=== PATIENT | male | born 2000 | race Caucasian/White ===

== ENCOUNTER 2019-01-29 10:07 | Emergency (ER) | payer OTHER ==
[2019-01-29 11:04] LABS: Absolute Lymphocytes (CBC) 1.3 K/uL (0.7-4.9); Absolute Monocytes 0.7 K/uL (0.1-1.3); Absolute Neutrophil 11.7 K/uL (1.8-8.0); Basophils % 0.7 % (0-1.3); Hematocrit 49.6 % (39.6-49.0); Lymphocytes % 9.6 % (15.3-44.8); MPV 7.8 fL (7.6-11.3); Monocytes % 5.3 % (3.3-12.3); RBC Red Blood Cell Count 5.21 M/uL (4.33-5.43)
[2019-01-29 11:18] LABS: Potassium 3.2 mmol/L (3.5-5.1)
[2019-01-29] MEDS ORDERED: NA CHLORIDE 0.9% 1,000 ML ONE (11:43)
[2019-01-29] MEDS ORDERED: ONDANSETRON 4 MG/2 ML VIAL ONE (12:24)
--- NOTE | 2019-01-29 12:56 | ER ---
Nurse's Notes [facility] Name: Alirio Middleton Age: 18 yrs Sex: Male : 2000 Arrival Date: 01/29/2019 Time: 10:12 Bed 18 Private MD: Diagnosis: Vomiting, unspecified Presentation: 01/29 10:22 Presenting complaint: Patient states: vomiting that began Tuesday. Pt states "I feel aa5 lightheaded like I am dehydrated". Transition of care: patient was not received from another setting of care. Onset of symptoms was January 2019. Risk Assessment: Do you want to hurt yourself or someone else? Patient reports no desire to harm self or others. Initial Sepsis Screen: Does the patient meet any 2 criteria? No. Patient's initial sepsis screen is negative. Does the patient have a suspected source of infection? No. Patient's initial sepsis screen is negative. Care prior to arrival: None. 10:22 Method Of Arrival: Ambulatory aa5 10:22 Acuity: TORREY 3 aa5 Historical: - Allergies: 10:23 No Known Allergies; aa5 - PMHx: 10:23 Possible chron's; aa5 - PSHx: 10:23 None; aa5 - Immunization history:: Flu vaccine is not up to date. - Social history:: Smoking status: Patient uses tobacco products, denies chronic smoking, but will smoke occasionally. - Ebola Screening: : No symptoms or risks identified at this time. Assessment: 11:00 General: Appears in no apparent distress. uncomfortable, slender, well groomed, ph Behavior is calm, cooperative, appropriate for age, Denies fever. Pain: Denies pain. Neuro: Level of Consciousness is awake, alert, obeys commands, Oriented to person, place, time, situation, Reports dizziness. Cardiovascular: Capillary refill < 3 seconds in bilateral fingers Patient's skin is warm and dry. Respiratory: Airway is patent Respiratory effort is even, unlabored, Respiratory pattern is regular, symmetrical. GI: Abdomen is flat, non-distended, Bowel sounds present X 4 quads. Abd is soft and non tender X 4 quads. Reports nausea, vomiting, Patient currently denies abdominal pain, diarrhea. Derm: Skin is intact, Skin is pink, warm \\T\\ dry. Musculoskeletal: Circulation, motion, and sensation intact. Range of motion: intact in all extremities. 12:19 Reassessment: Patient appears in no apparent distress at this time. Patient and/or ph family updated on plan of care and expected duration. Pain level reassessed. Patient is alert, oriented x 3, equal unlabored respirations, skin warm/dry/pink. Pt c/o nausea, antiemetic administered per ERP order and pt given water for PO challenge. Vital Signs: 10:23 BP 121 / 80; Pulse 61; Resp 16 S; Temp 98.1(O); Pulse Ox 100% on R/A; Weight 58.97 kg aa5 (R); Height 5 ft. 9 in. (175.26 cm) (R); Pain 0/10; 10:55 BP 130 / 77 Supine; Pulse 50; Resp 16; Pulse Ox 100% on R/A; dh3 10:57 BP 130 / 84 Sitting; Pulse 55; Resp 16; Pulse Ox 99% on R/A; dh3 10:59 BP 130 / 90 Standing; Pulse 63; Resp 16; Pulse Ox 99% on R/A; dh3 12:27 BP 128 / 80; Pulse 56; Resp 18; Pulse Ox 99% on R/A; ph 10:23 Body Mass Index 19.20 (58.97 kg, 175.26 cm) aa5 ED Course: 10:12 Patient arrived in ED. aa5 10:14 [facility]C [facility]. kb 10:14 Pablo Matias MD is Attending Physician. kb 10:22 Arm band placed on. aa5 10:23 Triage completed. aa5 10:30 Ria Blair RN is Primary Nurse. ph 10:50 Inserted saline lock: 20 gauge in right antecubital area, using aseptic technique. ph Blood collected. Administered Medications: 11:35 Drug: NS 0.9% 1000 ml Route: IV; Rate: 1000 ml; Site: right antecubital; ph 13:41 Follow up: Response: No adverse reaction; IV Status: Completed infusion ph 12:18 Drug: Zofran 4 mg Route: IVP; Site: right antecubital; ph 13:41 Follow up: Response: No adverse reaction; Nausea is decreased ph Outcome: 12:56 Discharge ordered by . kb 13:42 Patient left the ED. ph Signatures: Isis Silva FNP-C FNP-Ckb Calderon, Renetta, RN RN aa5 Ria Blair RN RN ph Crow, Tessie 3
--- NOTE | 2019-01-29 12:57 | EDPHYS ---
Physician Documentation [facility] Name: Alirio Middleton Age: 18 yrs Sex: Male : 2000 Arrival Date: 01/29/2019 Time: 10:12 Bed 18 Private MD: ED Physician Pablo Matias HPI: 01/29 10:59 This 18 yrs old Male presents to ER via Ambulatory with complaints of kb Vomiting. 10:59 The patient presents to the emergency department with nausea, vomiting. Onset: The kb symptoms/episode began/occurred 4 day(s) ago. Possible causes: unknown. The symptoms are aggravated by nothing. The symptoms are alleviated by nothing. Associated signs and symptoms: Pertinent positives: nausea, vomiting, Pertinent negatives: abdominal pain, anorexia, belching, constipation, diarrhea, dysuria, fever, flatulence, GI bleeding, hematuria. Severity of symptoms: At their worst the symptoms were moderate in the emergency department the symptoms are unchanged. The patient has not experienced similar symptoms in the past. The patient has not recently seen a physician. Historical: - Allergies: 10:23 No Known Allergies; aa5 - PMHx: 10:23 Possible chron's; aa5 - PSHx: 10:23 None; aa5 - Immunization history:: Flu vaccine is not up to date. - Social history:: Smoking status: Patient uses tobacco products, denies chronic smoking, but will smoke occasionally. - Ebola Screening: : No symptoms or risks identified at this time. ROS: 10:58 ENT: Negative for injury, pain, and discharge, Neck: Negative for injury, pain, and kb swelling, Cardiovascular: Negative for chest pain, palpitations, and edema, Respiratory: Negative for shortness of breath, cough, wheezing, and pleuritic chest pain, Back: Negative for injury and pain, : Negative for injury, bleeding, discharge, and swelling, MS/Extremity: Negative for injury and deformity, Skin: Negative for injury, rash, and discoloration, Neuro: Negative for headache, weakness, numbness, tingling, and seizure. 10:58 Constitutional: Positive for fatigue, malaise, poor PO intake, Negative for body aches, chills, fever, weight loss. 10:58 Abdomen/GI: Positive for nausea and vomiting, Negative for abdominal pain, diarrhea, constipation, abdominal cramps, abdominal distension, anorexia. Exam: 10:59 Constitutional: This is a well developed, well nourished patient who is awake, alert, kb and in no acute distress. Head/Face: Normocephalic, atraumatic. ENT: Nares patent. No nasal discharge, no septal abnormalities noted. Tympanic membranes are normal and external auditory canals are clear. Oropharynx with no redness, swelling, or masses, exudates, or evidence of obstruction, uvula midline. Mucous membranes moist. Neck: Trachea midline, no thyromegaly or masses palpated, and no cervical lymphadenopathy. Supple, full range of motion without nuchal rigidity, or vertebral point tenderness. No Meningismus. Chest/axilla: Normal chest wall appearance and motion. Nontender with no deformity. No lesions are appreciated. Cardiovascular: Regular rate and rhythm with a normal S1 and S2. No gallops, murmurs, or rubs. Normal PMI, no JVD. No pulse deficits. Respiratory: Lungs have equal breath sounds bilaterally, clear to auscultation and percussion. No rales, rhonchi or wheezes noted. No increased work of breathing, no retractions or nasal flaring. Abdomen/GI: Soft, non-tender, with normal bowel sounds. No distension or tympany. No guarding or rebound. No evidence of tenderness throughout. Back: No spinal tenderness. No costovertebral tenderness. Full range of motion. Skin: Warm, dry with normal turgor. Normal color with no rashes, no lesions, and no evidence of cellulitis. MS/ Extremity: Pulses equal, no cyanosis. Neurovascular intact. Full, normal range of motion. Neuro: Awake and alert, GCS 15, oriented to person, place, time, and situation. Cranial nerves II-XII grossly intact. Motor strength 5/5 in all extremities. Sensory grossly intact. Cerebellar exam normal. Normal gait. Vital Signs: 10:23 BP 121 / 80; Pulse 61; Resp 16 S; Temp 98.1(O); Pulse Ox 100% on R/A; Weight 58.97 kg aa5 (R); Height 5 ft. 9 in. (175.26 cm) (R); Pain 0/10; 10:55 BP 130 / 77 Supine; Pulse 50; Resp 16; Pulse Ox 100% on R/A; dh3 10:57 BP 130 / 84 Sitting; Pulse 55; Resp 16; Pulse Ox 99% on R/A; dh3 10:59 BP 130 / 90 Standing; Pulse 63; Resp 16; Pulse Ox 99% on R/A; dh3 12:27 BP 128 / 80; Pulse 56; Resp 18; Pulse Ox 99% on R/A; ph 10:23 Body Mass Index 19.20 (58.97 kg, 175.26 cm) aa5 MDM: 10:24 Patient medically screened. kb 10:58 Data reviewed: vital signs, nurses notes. Data interpreted: Pulse oximetry: on room air kb is 100 %. Interpretation: normal. 11:39 Counseling: I had a detailed discussion with the patient and/or guardian regarding: the kb historical points, exam findings, and any diagnostic results supporting the discharge/admit diagnosis, lab results, the need for outpatient follow up, a family practitioner, to return to the emergency department if symptoms worsen or persist or if there are any questions or concerns that arise at home. 12:55 ED course: Pt tolerating PO intake. Reports he is feeling better. kb 01/29 10:36 Order name: CBC with Diff; Complete Time: 11:18 kb 01/29 10:36 Order name: Basic Metabolic Panel; Complete Time: 11:18 kb 01/29 10:35 Order name: Orthostatics; Complete Time: 11:02 kb 01/29 10:36 Order name: Flu; Complete Time: 11:39 kb 01/29 10:36 Order name: IV Start; Complete Time: 11:03 kb 01/29 11:40 Order name: PO challenge; Complete Time: 13:41 kb Administered Medications: 11:35 Drug: NS 0.9% 1000 ml Route: IV; Rate: 1000 ml; Site: right antecubital; ph 13:41 Follow up: Response: No adverse reaction; IV Status: Completed infusion ph 12:18 Drug: Zofran 4 mg Route: IVP; Site: right antecubital; ph 13:41 Follow up: Response: No adverse reaction; Nausea is decreased ph Disposition: 15:02 Co-signature as Attending Physician, Pablo Matias MD. ma2 Disposition: 01/29/19 12:56 Discharged to Home. Impression: Vomiting, unspecified. - Condition is Stable. - Discharge Instructions: Nausea and Vomiting, Adult, [id number]. - Prescriptions for Zofran 4 mg Oral Tablet - take 1 tablet by ORAL route every 6 hours As needed; 20 tablet. - Medication Reconciliation Form, Thank You Letter, Antibiotic Education, Prescription Opioid Use form. - Follow up: Emergency Department; When: As needed; Reason: Worsening of condition. Follow up: Private Physician; When: 2 - 3 days; Reason: Recheck today's complaints, Continuance of care, Re-evaluation by your physician. Signatures: Dispatcher [employer] EDIsis Diego, Renetta Bruno, RN RN aa5 Ria Blair RN RN ph Pablo Matias MD MD ma2 Corrections: (The following items were deleted from the chart) 13:42 12:56 01/29/2019 12:56 Discharged to Home. Impression: Vomiting, unspecified. Condition ph is Stable. Forms are Medication Reconciliation Form, Thank You Letter, Antibiotic Education, Prescription Opioid Use. Follow up: Emergency Department; When: As needed; Reason: Worsening of condition. Follow up: Private Physician; When: 2 - 3 days; Reason: Recheck today's complaints, Continuance of care, Re-evaluation by your physician. kb
== END 2019-01-29 13:42 | disposition home or self-care (01) ==
LOC: ER 10:07
DX: R11.2 Nausea with vomiting, unspecified (principal); Z72.0 Tobacco use
CPT/HCPCS: 36415; 80048; 85025; 87804; 96361; 96374; 99284; J2405; J7030

== ENCOUNTER 2020-05-24 02:28 | Emergency (ER) | payer OTHER ==
[2020-05-24] MEDS ORDERED: LORazepam 2 MG/ML VIAL ONE (02:58)
[2020-05-24 03:02] LABS: Absolute Lymphocytes (CBC) 1.2 K/uL (0.7-4.9); Basophils % 0.8 % (0-1.3); Hematocrit 48.4 % (39.6-49.0); MPV 8.1 fL (7.6-11.3); RBC Red Blood Cell Count 4.95 M/uL (4.33-5.43)
[2020-05-24 03:05] LABS: Protime INR 0.98
[2020-05-24 03:16] LABS: Barbiturates NEGATIVE (NEGATIVE); Benzodiazepines NEGATIVE (NEGATIVE); Cocaine NEGATIVE (NEGATIVE); METHAMPHETAM NEGATIVE (NEGATIVE); Methadone NEGATIVE (NEGATIVE); Opiates NEGATIVE (NEGATIVE); Phencyclidine NEGATIVE (NEGATIVE); THC Cannibis POSITIVE (NEGATIVE)
[2020-05-24 03:17] LABS: ALT/SGPT 73 U/L (12-78); AST/SGOT 91 U/L (15-37); Albumin 4.8 g/dL (3.4-5.0); Alkaline Phosphatase 70 U/L (45-117); BUN Blood Urea Nitrogen 21 mg/dL (7-18); Bicarbonate 23 mmol/L (21-32); Bilirubin Direct 0.2 mg/dL (0-0.2); Bilirubin Total 0.7 mg/dL (0.2-1.0); Glucose Level 141 mg/dL (74-106); Potassium 3.1 mmol/L (3.5-5.1); Protein, Total 8.3 g/dL (6.4-8.2); Sodium Level 140 mmol/L (136-145)
[2020-05-24] MEDS ORDERED: TETANUS & DIPHTHERIA TOX,ADULT 0.5 ML VIAL ONE (04:20)
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
--- NOTE | 2020-05-24 05:15 | EDPHYS ---
Physician Documentation [facility] Name: Alirio Middleton Age: 20 yrs Sex: Male : 2000 Arrival Date: 05/24/2020 Time: 02:27 Bed 3 Private MD: ED Physician Darrian Crisostomo HPI: 05/24 03:47 This 20 yrs old Male presents to ER via EMS with complaints of Drug Abuse, mh7 Trauma Complaint. 03:47 Trauma demographics: County: The injury occurred in [place] Location of Injury: The mh7 injury occurred on a street or driveway, Date: May 24, 2020. Mechanism of injury: Fall: the patient fell from a building, jumped from a balcony after using drugs. Associated injuries: The patient sustained right leg, abrasion, contusion. Onset: The symptoms/episode began/occurred today. Unable to obtain HPI due to altered mental status, patient is being uncooperative, Intoxicated. Historical: - Allergies: 02:38 No Known Allergies; rr5 - Home Meds: 02:38 None [Active]; rr5 - PMHx: 02:38 None; rr5 - PSHx: 02:38 None; rr5 - Immunization history:: Adult Immunizations up to date, Last tetanus immunization: unknown. - Social history:: Smoking status: unknown Patient uses street drugs, marijuana, Patient/guardian denies using alcohol. ROS: 03:47 Unable to obtain ROS due to altered mental status, patient being uncooperative, mh7 Intoxicated. Exam: 03:47 Head/Face: Normocephalic, atraumatic. Eyes: Pupils equal round and reactive to light, mh7 extra-ocular motions intact. Lids and lashes normal. Conjunctiva and sclera are non-icteric and not injected. Cornea within normal limits. Periorbital areas with no swelling, redness, or edema. ENT: Nares patent. No nasal discharge, no septal abnormalities noted. Tympanic membranes are normal and external auditory canals are clear. Oropharynx with no redness, swelling, or masses, exudates, or evidence of obstruction, uvula midline. Mucous membranes moist. Neck: Trachea midline, no thyromegaly or masses palpated, and no cervical lymphadenopathy. Supple, full range of motion without nuchal rigidity, or vertebral point tenderness. No Meningismus. Chest/axilla: Normal chest wall appearance and motion. Nontender with no deformity. No lesions are appreciated. Cardiovascular: Regular rate and rhythm with a normal S1 and S2. No gallops, murmurs, or rubs. Normal PMI, no JVD. No pulse deficits. Respiratory: Lungs have equal breath sounds bilaterally, clear to auscultation and percussion. No rales, rhonchi or wheezes noted. No increased work of breathing, no retractions or nasal flaring. Abdomen/GI: Soft, non-tender, with normal bowel sounds. No distension or tympany. No guarding or rebound. No evidence of tenderness throughout. Back: No spinal tenderness. No costovertebral tenderness. Full range of motion. Male : Normal genitalia with no discharge or lesions. Skin: Warm, dry with normal turgor. Normal color with no rashes, no lesions, and no evidence of cellulitis. 03:47 Constitutional: The patient appears in no acute distress, awake, Appears intoxicated 03:47 Musculoskeletal/extremity: Extremities: noted in the right leg: abrasion, contusion. 03:47 Skin: injury, abrasion(s), small abrasion noted, of the right leg, contusion(s), that are superficial, of the right leg. 03:47 Neuro: Orientation: unable to test, the patient is clinically intoxicated, Mentation: unable to test, the patient is clinically intoxicated, Memory: unable to test, the patient is clinically intoxicated, Cranial nerves: unable to test, the patient is clinically intoxicated, Cerebellar function: unable to test, the patient is clinically intoxicated, Motor: unable to test, the patient is clinically intoxicated, Sensation: unable to test, the patient is clinically intoxicated, seizure activity, is not displayed by the patient, Abnormal movements: there are no abnormal movements. Vital Signs: 02:25 BP 157 / 77; Pulse 107; Resp 20; Temp 98.2; Pulse Ox 100% ; Weight 75 kg; rr5 03:22 BP 141 / 75; Pulse 77; Resp 16; Pulse Ox 98% on R/A; rr5 04:16 BP 128 / 75; Pulse 70; Resp 15; Pulse Ox 100% ; rr5 05:08 BP 129 / 60; Pulse 68; Resp 17; Pulse Ox 99% ; rr5 Lanse Coma Score: 02:25 Eye Response: spontaneous(4). Verbal Response: confused(4). Motor Response: obeys rr5 commands(6). Total: 14. Trauma Score (Adult): 02:25 Eye Response: spontaneous(1); Verbal Response: confused(1); Motor Response: obeys rr5 commands(2); Systolic BP: > 89 mm Hg(4); Respiratory Rate: 10 to 29 per min(4); Lanse Score: 14; Trauma Score: 12 03:22 Eye Response: spontaneous(1); Verbal Response: oriented(1); Motor Response: obeys rr5 commands(2); Systolic BP: > 89 mm Hg(4); Respiratory Rate: 10 to 29 per min(4); Wolf Score: 15; Trauma Score: 12 04:16 Eye Response: spontaneous(1); Verbal Response: oriented(1); Motor Response: obeys rr5 commands(2); Systolic BP: > 89 mm Hg(4); Respiratory Rate: 10 to 29 per min(4); Lanse Score: 15; Trauma Score: 12 05:08 Eye Response: spontaneous(1); Verbal Response: oriented(1); Motor Response: obeys rr5 commands(2); Systolic BP: > 89 mm Hg(4); Respiratory Rate: 10 to 29 per min(4); Wolf Score: 15; Trauma Score: 12 Laceration: 05:16 Wound Repair of 1cm ( 0.4in ) subcutaneous laceration to left occipital scalp. Distal mh7 neuro/vascular/tendon intact. Skin closed with 2 1-0 Hawks using staple gun. MDM: 02:34 Patient medically screened. [facility] 05:12 Differential diagnosis: intra-abdominal injury, closed head injury, extremity fracture, mh7 C spine fracture, T spine fracture, L spine fracture. Data reviewed: vital signs, nurses notes, EMS record, lab test result(s), CBC, electrolytes, EKG, radiologic studies, CT scan, plain films. Data interpreted: Pulse oximetry: on room air is 99 %. Interpretation: normal. Counseling: I had a detailed discussion with the patient and/or guardian regarding: the historical points, exam findings, and any diagnostic results supporting the discharge/admit diagnosis, lab results, radiology results, the need for outpatient follow up, to return to the emergency department if symptoms worsen or persist or if there are any questions or concerns that arise at home. 07:01 ED course: NAD, VSS, no focal neurological deficits. Awake, alert, and oriented x 3.. 05/24 02:38 Order name: Acetaminophen; Complete Time: 04:17 [facility] 05/24 02:38 Order name: Basic Metabolic Panel; Complete Time: 04:17 [facility] 05/24 02:38 Order name: CBC with Diff; Complete Time: 04:17 [facility] 05/24 02:38 Order name: ETOH Level; Complete Time: 04:17 [facility] 05/24 02:38 Order name: Hepatic Function; Complete Time: 04:17 [facility] 05/24 02:38 Order name: PT-INR; Complete Time: 04: [facility] 05/24 02:38 Order name: Ptt, Activated; Complete Time: 04:17 [facility] 05/24 02:38 Order name: Salicylate; Complete Time: 04:17 [facility] 05/24 02:38 Order name: Urine Drug Screen; Complete Time: 04: [facility] 05/24 02:45 Order name: Glucose, Ancillary Testing; Complete Time: 04:17 [facility] 05/24 02:38 Order name: EKG; Complete Time: 02:39 [facility] 05/24 02:38 Order name: EKG - Nurse/Tech; Complete Time: 02:46 [facility] 05/24 02:38 Order name: IV Saline Lock; Complete Time: 02:46 [facility] 05/24 02:38 Order name: Labs collected and sent; Complete Time: 02:46 [facility] 05/24 02:38 Order name: Urine Dipstick-Ancillary (obtain specimen); Complete Time: 02:46 [facility] 05/24 02:49 Order name: Head C Spine Cap W Con [facility] 05/24 04:09 Order name: XRAY Tib Fib RIGHT rr5 Administered Medications: 04:16 Drug: Tetanus-Diphtheria Toxoid Adult 0.5 ml {Family Practice Physician Assistant: [employer]. Exp: rr5 01/11/2022. Lot #: [id number]. } Route: IM; Site: right deltoid; Disposition: 05/24/20 05:14 Discharged to Home. Impression: Right Leg Contusion, Intoxication, Laceration without foreign body of scalp. - Condition is Stable. - Discharge Instructions: Contusion, Tfgw-[id number]-Tomj, Laceration Care, Adult, Mpkc-nc-Ocas, Facial or Scalp Contusion, Uqsb-rk-Udhb. - Medication Reconciliation Form, Thank You Letter, Antibiotic Education, Prescription Opioid Use form. - Follow up: Private Physician; When: 2 - 3 days; Reason: Worsening of condition, Recheck today's complaints, Re-evaluation by your physician. - Problem is new. - Symptoms have improved. Signatures: Dispatcher [employer] [facility] Arnie Berger RN RN rr5 Darrian Crisostomo MD MD mh7 Corrections: (The following items were deleted from the chart) 02:49 02:39 Chest Abdomen Pelvis W Con+CT.RAD.BRZ ordered. EDNY EDNY 03:18 02:39 Head C Spine MPR Wo Con+CT.RAD.BRZ ordered. EDNY EDNY 03:18 02:39 Thoracic Spine WO Cont+CT.RAD.BRZ ordered. EDNY EDNY 03:19 02:39 Spine Lumbar Wo Con+CT.RAD.BRZ ordered. [facility] 03:51 02:38 PMHx: chron's; rr5 rr5 03:51 02:38 PMHx: Possible Chron's; rr5 rr5 05:16 05:14 05/24/2020 05:14 Discharged to Home. Impression: Right Leg Contusion; mh7 Intoxication. Condition is Stable. Forms are Medication Reconciliation Form, Thank You Letter, Antibiotic Education, Prescription Opioid Use. Follow up: Private Physician; When: 2 - 3 days; Reason: Worsening of condition, Recheck today's complaints, Re-evaluation by your physician. Problem is new. Symptoms have improved. 7 05:21 05:16 05/24/2020 05:14 Discharged to Home. Impression: Right Leg Contusion; rr5 Intoxication; Laceration without foreign body of scalp. Condition is Stable. Discharge Instructions: Contusion, Uonu-ou-Jiyf, Laceration Care, Adult, Wwlq-zf-Pafi, Facial or Scalp Contusion, Ynss-es-Ogwj. Forms are Medication Reconciliation Form, Thank You Letter, Antibiotic Education, Prescription Opioid Use. Follow up: Private Physician; When: 2 - 3 days; Reason: Worsening of condition, Recheck today's complaints, Re-evaluation by your physician. Problem is new. Symptoms have improved. 7
[2020-05-24 05:42] VITALS: BP 129/60; O2SAT 99
--- NOTE | 2020-05-24 11:10 | RAD REPORT ---
EXAM DESCRIPTION: RAD - Tib Fib Right - 05/24/2020 4:33 am CLINICAL HISTORY: fall Fall, trauma, pain COMPARISON: No comparisons FINDINGS: No acute fracture or dislocation is seen.
--- NOTE | 2020-05-24 11:24 | EKG ---
Test Date: 2020-05-24 Test Time: 02:30:36 Child Development Director: KEE MEASUREMENT RESULTS: Intervals: Rate: 101 IL: 150 QRSD: 94 QT: 336 QTc: 435 Abercrombie: P: 63 IL: 150 QRS: 70 T: 62 INTERPRETIVE STATEMENTS: Sinus tachycardia Moderate voltage criteria for LVH, may be normal variant Borderline ECG No previous ECG available for comparison Electronically Signed On 05-24-20 11:23:10 CDT by Deshaun Peguero
--- NOTE | 2020-05-24 20:29 | RAD REPORT ---
EXAM DESCRIPTION: Head C Spine Cap W Con CLINICAL HISTORY: TRAUMA COMPARISON: None. TECHNIQUE: CT HEAD AND CERVICAL SPINE WITHOUT CONTRAST AND CT CHEST ABDOMEN PELVIS WITH CONTRAST on 05/24/2020 2:38 AM CDT This exam was performed according to our departmental dose-optimization program, which includes autom ated exposure control, adjustment of the mA and/or kV according to patient size and/or use of iterati ve reconstruction technique. FINDINGS: Brain: There is no acute hemorrhage, mass effect or midline shift. Pope-white differentiat ion is preserved. There is no hydrocephalus. There is no significant volume loss for age. The calvarium is intact. Orbits and globes are unremarkable. The paranasal sinuses are clear. Mastoid air cells are clear. Cervical Spine: There is no acute fracture. Alignment is anatomic. Disc spaces are maintained. Vertebral body heights are preserved. Soft tissues are unremarkable. Chest: The heart is normal in size. There is no pericardial effusion. Intrathoracic lymph nodes are n ot enlarged. There is no pleural effusion, pleural thickening or pneumothorax. Central airways are patent. Lungs a re clear with no consolidation, mass or interstitial lung disease. Abdomen: The liver is normal in appearance. There is no biliary dilatation. The gallbladder is normal in appearance. The pancreas and spleen are normal in appearance. The adrenal glands and kidneys are unremarkable. Abdominal aorta is normal in course and caliber without aneurysm. There is no free air. There is no r etroperitoneal adenopathy. Pelvis: There is no bowel obstruction. Urinary bladder is unremarkable. There is no free fluid. Appen robin is not clearly seen. Skeleton: There are no acute osseous findings. No suspicious bony lesions. IMPRESSION: No definite posttraumatic findings. Electronically signed by: Sumit Aguayo MD 05/24/2020 3:40 AM CDT Due to temporary technical issues with the PACS/Fluency reporting system, reports are being signed by the in house radiologist without review as a courtesy to ensure prompt reporting. The interpreting r adiologist is fully responsible for the content of the report.
== END 2020-05-24 05:21 | disposition home or self-care (01) ==
LOC: ER 02:28
PROC: 0JQ00ZZ Repair Scalp Subcutaneous Tissue and Fascia, Open Approach (ICD-10-PCS; principal; 2020-05-24)
DX: S01.01XA Laceration without foreign body of scalp, initial encounter (principal); S80.11XA Contusion of right lower leg, initial encounter; T50.905A Adverse effect of unspecified drugs, medicaments and biological substances, initial encounter; Z23 Encounter for immunization
CPT/HCPCS: 93005; 85025; 80048; 36415; 80320; 80329 ×2; 85610; 82947; 80076; 80307 ×8; 85730; 70450; 72125; 71260; 74177; 73590; 90471; 90714; 99285; 12001; Q9967

== ENCOUNTER 2023-02-18 19:57 | Emergency (ER) | payer OTHER ==
--- NOTE | 2023-02-18 21:38 | RAD REPORT ---
EXAM DESCRIPTION: US - Scrotum Testicles - 02/18/2023 9:04 pm CLINICAL HISTORY: Testicular pain COMPARISON: None FINDINGS: Right testicle measures 4.5 x 2.5 x 3.8 centimeters. Echotexture is homogeneous. Normal bl ood flow Left testicle measures 4.4 x 2.1 x 3.3 centimeters. Echotexture is homogeneous. Normal blood flow The epididymides are normal in size and echotexture. Normal blood flow is seen. 6 millimeter right complex spermatocele IMPRESSION: No significant abnormality is displayed
--- NOTE | 2023-02-18 22:33 | RAD REPORT ---
EXAM DESCRIPTION: CT - Stone Protocol - 02/18/2023 10:15 pm CLINICAL HISTORY: Abdominal pain./flank pain COMPARISON: None. TECHNIQUE: Computed axial tomography of the abdomen pelvis was obtained without oral or IV contrast. Lack of IV and oral contrast limits evaluation of solid organs, appendix, bowel, and vessels. Hammond l reformatted images were obtained and reviewed. All CT scans are performed using dose optimization technique as appropriate and may include automated exposure control or mA/KV adjustment according to patient size. FINDINGS: A renal calculus is not seen. An ureteral calculus is not noted. A bladder calculus is not present. No hydronephrosis Mild hepatomegaly Spleen, pancreas and adrenals appear grossly normal There is no evidence of diverticulitis. Spina bifida occulta S1 IMPRESSION: Negative for a genitourinary calculus Mild hepatomegaly
[2023-02-18 23:32] LABS: Specific Gravity 1.021 (1.005-1.030); Urine Bacteria <20 /HPF (<20); Urine Bilirubin NEGATIVE (Negative); Urine Blood 3+ (OVER) (Negative); Urine Clarity Turbid (Clear); Urine Color Light-Orange (Yellow); Urine Glucose NEGATIVE (Negative); Urine Mucus Slight /HPF (None Seen); Urine Protein 1+ (Negative); Urine RBC >50 /HPF (None Seen); Urine Urobilinogen Normal (Normal); Urine WBC Clump Occasional /HPF (None Seen)
--- NOTE | 2023-02-18 23:41 | EDPHYS ---
Physician Documentation [facility] Name: Alirio Middleton Age: 22 yrs Sex: Male : 2000 Arrival Date: 02/18/2023 Time: 20:03 Bed 25 Private MD: ED Physician Valentin Winters HPI: 02/18 21:32 This 22 yrs old Male presents to ER via Ambulatory with complaints of Testicular Pain, kb Abdominal Pain, Pain With Urination. 21:32 The patient presents with scrotal pain, of the left side, urinary symptoms, hematuria. kb Onset: The symptoms/episode began/occurred this morning. Modifying factors: The symptoms are alleviated by nothing, the symptoms are aggravated by urinating. Associated signs and symptoms: Pertinent positives: abdominal pain, hematuria, Pertinent negatives: constipation, diarrhea, dysuria, fever, nausea, vomiting. Severity of symptoms: At their worst the symptoms were moderate, in the emergency department the symptoms are unchanged. The patient has not experienced similar symptoms in the past. The patient has not recently seen a physician. Pt reports blood in urine this morning, slight flank pain that has resolved, left lower abd pain and left testicular pain. . Historical: - Allergies: 20:14 No Known Allergies; kd3 - Home Meds: 20:14 None [Active]; kd3 - PMHx: 20:14 None; kd3 - Immunization history:: Adult Immunizations up to date. - Social history:: Smoking status: Patient reports the use of cigarette tobacco products, cigars. ROS: 21:31 Constitutional: Negative for fever, chills, and weight loss. kb 21:31 Abdomen/GI: Positive for abdominal pain. 21:31 : Positive for hematuria, testicular pain 21:31 All other systems are negative. Exam: 21:31 Constitutional: This is a well developed, well nourished patient who is awake, alert, kb and in no acute distress. Head/Face: Normocephalic, atraumatic. ENT: Moist Mucous membranes Cardiovascular: Regular rate and rhythm with a normal S1 and S2. No gallops, murmurs, or rubs. No pulse deficits. Respiratory: Respirations even and unlabored. No increased work of breathing. Talking in full sentences Skin: Warm, dry with normal turgor. Normal color. MS/ Extremity: Pulses equal, no cyanosis. Neurovascular intact. Full, normal range of motion. Neuro: Awake and alert, GCS 15, oriented to person, place, time, and situation. Moves all extremities. Normal gait. Psych: Awake, alert, with orientation to person, place and time. Behavior, mood, and affect are within normal limits. 21:31 Abdomen/GI: Inspection: abdomen appears normal, Bowel sounds: normal, in all quadrants, Palpation: moderate abdominal tenderness, in the left lower quadrant. Vital Signs: 20:11 BP 127 / 70; Pulse 87; Resp 16; Temp 99.1(TE); Pulse Ox 99% on R/A; kd3 23:42 BP 119 / 49; Pulse 62; Resp 17; Pulse Ox 99% on R/A; aa9 MDM: 20:04 Patient medically screened. kb 21:31 Data reviewed: vital signs, nurses notes. kb 21:31 Differential diagnosis: nonspecific abdominal pain, Epididymitis, kidney stone, UTI. kb 23:34 Counseling: I had a detailed discussion with the patient and/or guardian regarding: the kb historical points, exam findings, and any diagnostic results supporting the discharge/admit diagnosis, lab results, radiology results, the need for outpatient follow up, a urologist, to return to the emergency department if symptoms worsen or persist or if there are any questions or concerns that arise at home. ED course: Educated to continue previously prescribed doxycycline and follow up with PCP/urology. 02/18 20:17 Order name: Urinalysis w/ reflexes; Complete Time: 23:34 kb 02/18 23:36 Order name: Urine Culture EDIL 02/18 20:17 Order name: US Scrotum Testicles; Complete Time: 22:42 kb 02/18 22:01 Order name: CT Stone Protocol; Complete Time: 22:57 kb Administered Medications: No medications were administered Disposition: 02/19 07:16 Co-signature as Attending Physician, Valentin Winters MD I reviewed the patient's care sp4 provided by the Advanced Practice Provider and agree with the diagnosis and treatment plan. Disposition Summary: 02/18/23 23:40 Discharge Ordered Location: Home kb Condition: Stable kb Diagnosis - Left testicular pain kb - UTI/ Urinary tract infection, site not specified kb Followup: kb - With: Emergency Department - When: As needed - Reason: Worsening of condition Followup: kb - With: Private Physician - When: 2 - 3 days - Reason: Recheck today's complaints, Continuance of care, Re-evaluation by your physician Discharge Instructions: - Discharge Summary Sheet kb - Urinary Tract Infection, Adult, Ayke-yx-[id number] kb - Testicular Self-Exam, Fqqc-qj-Simw kb Forms: - Medication Reconciliation Form kb - Thank You Letter kb - Antibiotic Education kb - Prescription Opioid Use kb Signatures: Dispatcher [employer] EDIsis Diego, Dasha Ruiz RN RN kd3 Valentin Winters MD MD sp4
--- NOTE | 2023-02-18 23:41 | ER ---
Nurse's Notes [facility] Name: Alirio Middleton Age: 22 yrs Sex: Male : 2000 Arrival Date: 02/18/2023 Time: 20:03 Bed 25 Private MD: Diagnosis: Left testicular pain;UTI/ Urinary tract infection, site not specified Presentation: 02/18 20:11 Chief complaint: Patient states: I woke up this morning with blood in my pee. I got kd3 antibiotics and an IV. but i went home and my left testicle hurt and i feel really sick and my back hurts. the pain goes up into my stomach. Ebola Screen: No symptoms or risks identified at this time. Initial Sepsis Screen: Does the patient meet any 2 criteria? No. Patient's initial sepsis screen is negative. Does the patient have a suspected source of infection? No. Patient's initial sepsis screen is negative. Onset of symptoms was February 18, 2023. 20:11 Method Of Arrival: Ambulatory kd3 20:11 Acuity: TORREY 3 kd3 20:15 Coronavirus screen: Vaccine status: Patient reports being unvaccinated. Risk kd3 Assessment: Do you want to hurt yourself or someone else? Patient reports no desire to harm self or others. Triage Assessment: 20:14 General: Appears uncomfortable, Behavior is calm, cooperative. Pain: Complains of pain kd3 in abdomen. Pain: Complains of pain in left lower quadrant. Respiratory: Airway is patent Trachea midline Respiratory effort is even, unlabored, Respiratory pattern is regular, symmetrical. GI: Reports nausea, Pain is 8 out of 10 on a pain scale. Historical: - Allergies: 20:14 No Known Allergies; kd3 - Home Meds: 20:14 None [Active]; kd3 - PMHx: 20:14 None; kd3 - Immunization history:: Adult Immunizations up to date. - Social history:: Smoking status: Patient reports the use of cigarette tobacco products, cigars. Screenin:17 [facility] ED Fall Risk Assessment (Adult) History of falling in the last 3 months, aa9 including since admission No falls in past 3 months (0 pts) Confusion or Disorientation No (0 pts) Intoxicated or Sedated No (0 pts) Impaired Gait No (0 pts) Mobility Assist Device Used No (0 pt) Altered Elimination No (0 pt) Score/Fall Risk Level 0 - 2 = Low Risk Oriented to surroundings, Educated pt \T\ family on fall prevention, incl call for assistance when getting out of bed. Abuse screen: Denies threats or abuse. Denies injuries from another. Nutritional screening: No deficits noted. Tuberculosis screening: No symptoms or risk factors identified. Assessment: 22:16 General: Appears uncomfortable, slender, well groomed, Behavior is cooperative, aa9 anxious. Pain: Complains of pain in groin. Neuro: Level of Consciousness is awake, alert, obeys commands. Respiratory: Airway is patent Respiratory effort is even, unlabored. 23:42 Reassessment: Patient appears in no apparent distress at this time. Patient and/or aa9 family updated on plan of care and expected duration. Pain level reassessed. Patient is alert, oriented x 3, equal unlabored respirations, skin warm/dry/pink. Vital Signs: 20:11 BP 127 / 70; Pulse 87; Resp 16; Temp 99.1(TE); Pulse Ox 99% on R/A; kd3 23:42 BP 119 / 49; Pulse 62; Resp 17; Pulse Ox 99% on R/A; aa9 ED Course: 20:03 Patient arrived in ED. ja2 20:04 Isis Silva FNP-C is [facility]. kb 20:04 Valentin Winters MD is Attending Physician. kb 20:14 Triage completed. kd3 20:14 Arm band placed on right wrist. kd3 21:05 US Scrotum Testicles In Process Unspecified. EDMS 21:23 Patient has correct armband on for positive identification. Placed in gown. Bed in low aa9 position. Call light in reach. Adult w/ patient. 22:17 CT Stone Protocol In Process Unspecified. EDMS 23:43 No provider procedures requiring assistance completed. aa9 Administered Medications: No medications were administered Medication: 23:43 VIS not applicable for this client. aa9 Outcome: 23:40 Discharge ordered by . kb 23:43 Condition: stable aa9 23:56 Patient left the ED. kb Signatures: Dispatcher [employer] EDMS Isis Silva FNP-C FNP-Ckb Alexander, Jessica ja2 Dasha Meyers RN RN kd3 Julieta Johnsonlin, RN RN aa9
== END 2023-02-18 23:56 | disposition home or self-care (01) ==
LOC: ER 19:57
DX: N50.812 Left testicular pain (principal); N39.0 Urinary tract infection, site not specified; F17.290 Nicotine dependence, other tobacco product, uncomplicated
CPT/HCPCS: 74176; 76377; 76870; 81001; 87086; 87088; 99282